=== PATIENT | female | born 1975 ===

== ENCOUNTER 2024-01-24 08:00 | Day surgery (SDC) | payer OTHER ==
[2024-01-17 09:46] LABS: HEMATOCRIT 38.8 % (36.0-45.00); HEMOGLOBIN 13.2 g/dL (12.0-15.00); MEAN CELL VOLUME 92.9 fL (80.00-100.00); MEAN CORPUSCULAR HEMOGLOBIN 31.6 pg (27.00-32.0); PLATELET COUNT 285 K/uL (150-450); RED BLOOD COUNT 4.18 M/uL (4.00-6.00); RED CELL DISTRIBUTION WIDTH 12.3 % (11.5-14.5)
[2024-01-17 09:48] LABS: PH,URINE 7.5 (5.0-8.0); URINE APPEARANCE Clear; URINE BILIRRUBIN Negative (NEGATIVE); URINE BLOOD Negative; URINE COLOR Yellow; URINE GLUCOSE Negative (NEGATIVE); URINE LEUKOCYTE Negative; URINE NITRATE Negative; URINE PROTEIN Negative (NEGATIVE); URINE UROBILINOGEN 0.2 E.U./dl
[2024-01-17 09:53] LABS: URINE BACTERIA 16.3 uL (0.0-1933); URINE EPITHELIAL CELLS 1.8 uL (0.0-38.8); URINE RBC 5.7 uL (0.0-20.8)
[2024-01-17 10:17] LABS: INR 0.98; PARTIAL THROMBOPLASTIN TIME 29.1 SECONDS (22.0-34.0); PROTHROMBIN TIME 10.3 SECONDS (9.0-11.5)
[2024-01-17 10:18] LABS: ALBUMIN 3.9 gm/dL (3.4-5.0); BILIRUBIN TOTAL 0.61 mg/dL (0.3-1.2); CALCIUM 9.4 mg/dL (8.5-10.1); CREATININE SERUM 0.71 mg/dL (0.55-1.02); GFR 87.86; GLOBULINA 3.7 G/DL (2.4-3.5); POTASSIUM 4.38 mEq/L (3.5-5.1); TOTAL PROTEIN 7.6 gm/dL (6.4-8.2)
[2024-01-17 10:32] LABS: URINE WBC 0 uL (0.0-23.2)
[2024-01-24] MEDS ORDERED: CEFAZOLIN SODIUM 1,000 MG VIAL ONE (09:08)
[2024-01-24] MEDS ORDERED: BUPIVACAINE HCL/PF 0.5% 30ML ML ONE (11:06)
[2024-01-24] MEDS ORDERED: CEFAZOLIN SODIUM 1,000 MG VIAL IV ONE (16:00)
[2024-01-24] MEDS ORDERED: BUPIVACAINE HCL 30 ML VIAL IJ ONE (16:00)
== END 2024-01-24 15:00 | disposition home or self-care (01) ==
LOC: CIR.AMB 08:00
PROVIDERS: ATTEND Orthopaedic Surgery
DX: M77.11 Lateral epicondylitis, right elbow (principal); M67.931 Unspecified disorder of synovium and tendon, right forearm; M24.821 Other specific joint derangements of right elbow, not elsewhere classified